=== PATIENT | male | born 1995 | race African-American/Black ===

== ENCOUNTER 2021-08-18 06:14 | Emergency (ER) | payer MEDICAID ==
[~2021-08-18] VITALS: Ht 185.4 cm; Wt 100.0 kg
[2021-08-18] MEDS ORDERED: LEVETIRACETAM 500MG PREMIX 100 ML IV ONE ×2 (06:30)
[2021-08-18 07:53] LABS: BASOPHILS % 0.4 % (0.0-2.0); EOSINOPHILS % 3.1 % (0.0-5.0); HEMATOCRIT. 42.4 % (42.0-52.0); HEMOGLOBIN. 14.2 g/dL (14.0-18.0); LYMPHOCYTES % 28.9 % (20.0-50.0); MEAN CORPUSCULAR HEMOGLOBIN 32.8 pg (28.0-32.0); MEAN CORPUSCULAR VOLUME 97.9 fL (80.0-94.0); MONOCYTES % 7.7 % (2.0-8.0); NEUTROPHILS % 59.9 % (40.0-76.0); PLATELET 182 x1000/uL (130-400); RED BLOOD CELL COUNT 4.33 mill/uL (4.7-6.1); RED CELL DISTRIBUTION WIDTH 13.6 % (11.6-14.6)
[2021-08-18 09:16] LABS: CHLORIDE 112 mEq/L (98-107)
[2021-08-18 09:22] LABS: ETHANOL BLOOD < 10 mg/dL
[2021-08-18 11:21] LABS: CLARITY URINE CLEAR (CLEAR); COLOR URINE YELLOW (YELLOW); KETONES URINE TRACE (NEGATIVE); LEUKOCYTE ESTERASE URINE NEGATIVE (NEGATIVE); NITRITE URINE NEGATIVE (NEGATIVE); OCCULT BLOOD URINE NEGATIVE (NEGATIVE); PH URINE 5.5 (4.5-8.0); PROTEIN URINE 1+ (NEGATIVE); SPECIFIC GRAVITY URINE 1.021 (1.005-1.030); UROBILINOGEN URINE 0.2 E.U./dL (0.2-1.0)
[2021-08-18] MEDS ORDERED: KETOROLAC 30MG/ML VIAL IV ONE (11:30)
[2021-08-18 11:41] LABS: *AMPHETAMINES SCREEN URINE NEGATIVE (NEGATIVE); *BARBITURATES SCREEN URINE NEGATIVE (NEGATIVE); *BENZODIAZEPINES SCREEN URINE PRESUMTIVE POSITIVE (NEGATIVE); *COCAINE SCREEN URINE NEGATIVE (NEGATIVE); METHADONE URINE SCREEN NEGATIVE (NEGATIVE)
[2021-08-18 11:42] LABS: CANNABINOID URINE SCREEN PRESUMTIVE POSITIVE (NEGATIVE); OPIATES URINE SCREEN NEGATIVE (NEGATIVE); PHENCYCLIDINE URINE SCREEN NEGATIVE (NEGATIVE)
[2021-08-18] MEDS ORDERED: LACO200T2 MT (12:01)
[2021-08-18 12:31] VITALS: BP 124/85
== END 2021-08-18 12:47 | disposition home or self-care (01) ==
LOC: ER 06:24
DX: R56.9 Unspecified convulsions (principal); I10 Essential (primary) hypertension
CPT/HCPCS: 36415; 80053; 80305; 80320; 81003; 85025; 93005; 96365; 96375; 99284; J1885; J1953; G0480

== ENCOUNTER 2021-11-25 11:36 | Emergency (ER) | payer MEDICAID, OTHER ==
[~2021-11-25] VITALS: Ht 185.4 cm; Wt 90.0 kg
[~2021-11-25 11:36] MED LIST: LACO200T2 MT
[2021-11-25 11:42] VITALS: BP 140/67
[2021-11-25] MEDS ORDERED: SODIUM CHLORIDE 0.9% 1,000 ML IV ONE (13:30)
== END 2021-11-25 16:41 | disposition left against medical advice (07) ==
LOC: ER 11:36
DX: G40.909 Epilepsy, unspecified, not intractable, without status epilepticus (principal); S00.512A Abrasion of oral cavity, initial encounter; R00.0 Tachycardia, unspecified; I10 Essential (primary) hypertension; X58.XXXA Exposure to other specified factors, initial encounter; Y93.89 Activity, other specified; Y92.89 Other specified places as the place of occurrence of the external cause
CPT/HCPCS: 82962; 99283; J7030

== ENCOUNTER 2021-12-11 08:11 | Inpatient (IN) | payer OTHER ==
[~2021-12-11] VITALS: Ht 182.9 cm; Wt 99.8 kg
[2021-12-11] MEDS ORDERED: DIVALPROEX SODIUM PO (08:19)
[2021-12-11] MEDS ORDERED: SODIUM CHLORIDE 0.9% 1,000 ML IV ONE (08:30)
[2021-12-11] MEDS ORDERED: LORAZEPAM 1MG TABLET PO ONE (08:45)
[2021-12-11 09:00] LABS: BASOPHILS % 0.9 % (0.0-2.0); EOSINOPHILS % 7.8 % (0.0-5.0); HEMATOCRIT. 41.9 % (42.0-52.0); HEMOGLOBIN. 14.2 g/dL (14.0-18.0); LYMPHOCYTES % 37.7 % (20.0-50.0); MEAN CORPUSCULAR HEMOGLOBIN 33.4 pg (28.0-32.0); MEAN CORPUSCULAR VOLUME 98.7 fL (80.0-94.0); MEAN PLATELET VOLUME 10.6 fl (7.4-10.4); MONOCYTES % 11.7 % (2.0-8.0); NEUTROPHILS % 41.9 % (40.0-76.0); PLATELET 135 x1000/uL (130-400); RED BLOOD CELL COUNT 4.24 mill/uL (4.7-6.1); RED CELL DISTRIBUTION WIDTH 13.9 % (11.6-14.6)
[2021-12-11 09:03] LABS: CLARITY URINE CLEAR (CLEAR); COLOR URINE YELLOW (YELLOW); KETONES URINE 1+ (NEGATIVE); LEUKOCYTE ESTERASE URINE NEGATIVE (NEGATIVE); NITRITE URINE NEGATIVE (NEGATIVE); OCCULT BLOOD URINE NEGATIVE (NEGATIVE); PROTEIN URINE 1+ (NEGATIVE); SPECIFIC GRAVITY URINE 1.026 (1.005-1.030)
[2021-12-11 09:08] LABS: CHLORIDE 110 mEq/L (98-107)
[2021-12-11 09:21] LABS: ETHANOL BLOOD < 10 mg/dL
[2021-12-11 09:22] LABS: *AMPHETAMINES SCREEN URINE NEGATIVE (NEGATIVE); *BARBITURATES SCREEN URINE NEGATIVE (NEGATIVE); *BENZODIAZEPINES SCREEN URINE NEGATIVE (NEGATIVE); *COCAINE SCREEN URINE NEGATIVE (NEGATIVE); CANNABINOID URINE SCREEN PRESUMTIVE POSITIVE (NEGATIVE); METHADONE URINE SCREEN NEGATIVE (NEGATIVE); OPIATES URINE SCREEN NEGATIVE (NEGATIVE); PHENCYCLIDINE URINE SCREEN NEGATIVE (NEGATIVE)
[2021-12-11 09:33] LABS: CARBAMAZEPINE < 0.5 ug/mL (4-12); PHENOBARBITAL < 2.1 ug/mL (15.0-40.0)
[2021-12-11] MEDS ORDERED: MIDAZOLAM HCL 2 MG/2 ML VIAL IM ONE ×2 (17:00→18:00)
[2021-12-11] MEDS ORDERED: LEVETIRACETAM 500MG PREMIX 100 ML IV NR (22:45)
[2021-12-12] MEDS: PANTOPRAZOLE SODIUM 40 MG/VIAL IV SCH (09:00)
[2021-12-12] MEDS: LEVETIRACETAM 500MG PREMIX 100 ML IV SCH ×2 (09:00→21:00)
[2021-12-12] MEDS ORDERED: ONDANSETRON HCL 4MG/2ML INJ IV PRN (12:30)
[2021-12-12] MEDS ORDERED: HYDROCODONE/ACETAMINOPHEN 5/325MG TABLET PO PRN (12:30)
[2021-12-12] MEDS ORDERED: ACETAMINOPHEN 325MG TABLET PO PRN (12:30)
[2021-12-12 13:43] VITALS: BP 123/74
[2021-12-12 13:47] VITALS: BP 123/74
[2021-12-12 17:49] VITALS: BP 141/75
[2021-12-12] MEDS ORDERED: NALOXONE HCL 0.4MG/ML VIAL IV PRN (18:45)
[2021-12-12] MEDS ORDERED: BRIV50TA PO (19:53)
[2021-12-12 20:00] VITALS: BP 144/86
[2021-12-12 22:00] VITALS: BP 128/71
[2021-12-12] MEDS ORDERED: DIPHENHYDRAMINE 50MG/ML VIAL IV PRN (22:30)
[2021-12-12] MEDS ORDERED: DIAZEPAM 5 MG/ML 2ML CPJ IV PRN (22:30)
[2021-12-12] MEDS: LAMOTRIGINE 25MG TABLET PO SCH (23:50)
[2021-12-13 07:09] LABS: BASOPHILS % 0.4 % (0.0-2.0); EOSINOPHILS % 2.8 % (0.0-5.0); HEMATOCRIT. 42.2 % (42.0-52.0); HEMOGLOBIN. 14.3 g/dL (14.0-18.0); LYMPHOCYTES % 37.3 % (20.0-50.0); MEAN CORPUSCULAR HEMOGLOBIN 33.2 pg (28.0-32.0); MEAN CORPUSCULAR VOLUME 98.2 fL (80.0-94.0); MEAN PLATELET VOLUME 10.8 fl (7.4-10.4); MONOCYTES % 13.8 % (2.0-8.0); NEUTROPHILS % 45.7 % (40.0-76.0); PLATELET 125 x1000/uL (130-400); RED CELL DISTRIBUTION WIDTH 13.6 % (11.6-14.6)
[2021-12-13 07:16] LABS: CHLORIDE 107 mEq/L (98-107)
[2021-12-13 07:32] LABS: HDL CHOLESTEROL 42 mg/dL (40-59); LDL CHOLESTEROL 119 mg/dL (5-100); T4 FREE 1.01 ng/dL (0.76-1.46)
[2021-12-13] MEDS: LEVETIRACETAM 500MG PREMIX 100 ML IV SCH (08:25)
[2021-12-13] MEDS: PANTOPRAZOLE SODIUM 40 MG/VIAL IV SCH (08:30)
[2021-12-13] MEDS: LAMOTRIGINE 25MG TABLET PO SCH ×2 (08:30→22:17)
[2021-12-13 10:00] VITALS: BP 149/94
[2021-12-13] MEDS: DIVALPROEX SODIUM 500MG DR TABLET PO SCH ×2 (10:41→22:16)
[2021-12-13] MEDS: LACOSAMIDE 100 MG TABLET PO SCH (12:42)
[2021-12-13 19:34] VITALS: BP 151/93
[2021-12-13 21:34] VITALS: BP 142/75
[2021-12-13] MEDS: FAMOTIDINE 20MG/2ML VIAL IV SCH (22:17)
[2021-12-13 23:34] VITALS: BP 136/87
[2021-12-14] VITALS (12 sets, daily range): BP systolic 130–174; BP diastolic 71–107
[2021-12-14] MEDS: DIVALPROEX SODIUM 500MG DR TABLET PO SCH (09:40)
[2021-12-14] MEDS: LACOSAMIDE 100 MG TABLET PO SCH ×2 (09:40→16:44)
[2021-12-14] MEDS: LAMOTRIGINE 25MG TABLET PO SCH ×2 (09:40→16:44)
[2021-12-14] MEDS: FAMOTIDINE 20MG/2ML VIAL IV SCH (09:40)
[2021-12-14] MEDS ORDERED: FAMOTIDINE 20MG TABLET PO SCH (21:00)
== END 2021-12-14 17:59 | disposition home or self-care (01) | DRG 53 ==
LOC: ER 08:11 → MICUSO 17:53 → 5EST 12-12 11:48
PROVIDERS: ADMIT Internal Medicine; ATTEND Internal Medicine
DX: G40.409 Other generalized epilepsy and epileptic syndromes, not intractable, without status epilepticus (principal); E44.1 Mild protein-calorie malnutrition; E87.5 Hyperkalemia; I10 Essential (primary) hypertension; Z20.822 Contact with and (suspected) exposure to COVID-19; T42.6X5A Adverse effect of other antiepileptic and sedative-hypnotic drugs, initial encounter; F12.90 Cannabis use, unspecified, uncomplicated; Z88.8 Allergy status to other drugs, medicaments and biological substances; Z79.899 Other long term (current) drug therapy; Y92.89 Other specified places as the place of occurrence of the external cause
CPT/HCPCS: 36415; 80053; 80061; 80156; 80165; 80184; 80185; 80305; 80320; 80339; 81003; 82962; 84439; 84443; 85025; 87426; 93005; 99285; C9113; C9803; J1953; J2250; J2405; J3490; J7030; G0480

== ENCOUNTER 2022-12-18 16:35 | Emergency (ER) | payer OTHER ==
[~2022-12-18] VITALS: Ht 182.9 cm; Wt 82.0 kg
[~2022-12-18 16:35] MED LIST changes: +BRIV50TA PO; +DIVALPROEX SODIUM PO
[2022-12-18 16:36] VITALS: O2SAT 99
[2022-12-18] MEDS ORDERED: ACETAMINOPHEN 325MG TABLET PO ONE (17:30)
[2022-12-18 17:41] LABS: BASOPHILS % 0.4 % (0.0-2.0); DIFFERENTIAL COMMENT 0; EOSINOPHILS % 0.2 % (0.0-5.0); HEMATOCRIT. 42.7 % (42.0-52.0); HEMOGLOBIN. 14.2 g/dL (14.0-18.0); LYMPHOCYTES % 7.9 % (20.0-50.0); MEAN CORPUSCULAR HEMOGLOBIN 33.5 pg (28.0-32.0); MEAN CORPUSCULAR HGB CONC 33.3 g/dL (31.0-37.0); MEAN CORPUSCULAR VOLUME 100.7 fL (80.0-94.0); MEAN PLATELET VOLUME 9.5 fl (7.4-10.4); MONOCYTES % 8.4 % (2.0-8.0); NEUTROPHILS % 83.1 % (40.0-76.0); PLATELET 148 x1000/uL (130-400); RED BLOOD CELL COUNT 4.23 mill/uL (4.7-6.1); RED CELL DISTRIBUTION WIDTH 12.9 % (11.6-14.6); WHITE BLOOD COUNT 9.8 x1000/uL (4.5-11.0)
[2022-12-18 17:53] LABS: CHLORIDE 108 mEq/L (98-107); INDEX HEMOLYSI 1 (1-3); INDEX ICTERIC 1 (1-4); INDEX LIPEMIC 1 (1-3); POTASSIUM 4.6 mEq/L (3.5-5.1); SODIUM 138 mEq/L (136-145)
[2022-12-18 18:00] LABS: ALANINE AMINOTRANSFERASE 36 IU/L (13-61); ALBUMIN 3.7 g/dL (3.4-5.0); ASPARTATE AMINOTRANSFERASE 16 IU/L (15-37); BILIRUBIN TOTAL 0.4 mg/dL (0.1-1.0); CALCIUM 8.3 mg/dL (8.5-10.1); CARBON DIOXIDE 24 mEq/L (21-32); ETHANOL BLOOD < 10 mg/dL (-10); GLUCOSE 111 mg/dL (70-105); PROTEIN TOTAL 6.7 g/dL (6.0-8.3); UREA NITROGEN BLOOD 14 mg/dL (7-21)
[2022-12-18] MEDS ORDERED: DIVALPROEX SODIUM 250MG ER TABLET PO ONE (19:15)
[2022-12-18] MEDS ORDERED: MORPHINE SULFATE 4 MG/ML CPJ (NOT FOR IM USE) IV ONE (19:15)
[2022-12-18] MEDS ORDERED: TOPUD MT (20:52)
[2022-12-18 21:00] VITALS: BP 120/80; PULSE 70; RESP 15; TEMP 98.1
[2022-12-19] MEDS ORDERED: DIVA-73 PO (16:40)
[2022-12-19] MEDS ORDERED: LACO200T4 PO (16:42)
[2022-12-19] MEDS ORDERED: BRIV100T PO (16:42)
[2022-12-19] MEDS ORDERED: FAMO40TA7 PO (16:42)
== END 2022-12-18 21:20 | disposition home or self-care (01) ==
LOC: ER 16:35
DX: G40.909 Epilepsy, unspecified, not intractable, without status epilepticus (principal); R51.9 Headache, unspecified; I10 Essential (primary) hypertension; F15.90 Other stimulant use, unspecified, uncomplicated; Z88.8 Allergy status to other drugs, medicaments and biological substances; Z79.899 Other long term (current) drug therapy
CPT/HCPCS: 80053; 80320; 80165; 85025; 36415; 70450; 96374; 99285; Z7610 ×3; J2270; G0480

== ENCOUNTER 2023-03-01 11:09 | Emergency (ER) | payer OTHER ==
[~2023-03-01] VITALS: Ht 177.8 cm; Wt 80.0 kg
[~2023-03-01 11:09] MED LIST changes: +BRIV100T PO; -BRIV50TA PO; +DIVA-73 PO; -DIVALPROEX SODIUM PO; +FAMO40TA7 PO; -LACO200T2 MT; +LACO200T4 PO
[2023-03-01 11:12] VITALS: O2SAT 98
[2023-03-01] MEDS ORDERED: VALPROATE SODIUM 500 MG in SODIUM CHLORIDE 0.9% 100 ML IV STA (11:20)
[2023-03-01 12:24] LABS: BASOPHILS % 0.5 % (0.0-2.0); EOSINOPHILS % 3.8 % (0.0-5.0); HEMOGLOBIN. 13.3 g/dL (14.0-18.0); LYMPHOCYTES % 37.5 % (20.0-50.0); MEAN CORPUSCULAR HEMOGLOBIN 32.4 pg (28.0-32.0); MEAN CORPUSCULAR HGB CONC 33.2 g/dL (31.0-37.0); MEAN CORPUSCULAR VOLUME 97.8 fL (80.0-94.0); MEAN PLATELET VOLUME 9.6 fl (7.4-10.4); MONOCYTES % 13.2 % (2.0-8.0); PLATELET 142 x1000/uL (130-400); RED BLOOD CELL COUNT 4.09 mill/uL (4.7-6.1); RED CELL DISTRIBUTION WIDTH 13.6 % (11.6-14.6); WHITE BLOOD COUNT 2.8 x1000/uL (4.5-11.0)
[2023-03-01 12:32] LABS: CHLORIDE 110 mEq/L (98-107); INDEX HEMOLYSI 1 (1-3); INDEX ICTERIC 1 (1-4); INDEX LIPEMIC 1 (1-3); POTASSIUM 4.1 mEq/L (3.5-5.1); SODIUM 140 mEq/L (136-145)
[2023-03-01 12:42] LABS: ALANINE AMINOTRANSFERASE 18 IU/L (13-61); ALBUMIN 3.3 g/dL (3.4-5.0); ASPARTATE AMINOTRANSFERASE 13 IU/L (15-37); BILIRUBIN TOTAL 0.4 mg/dL (0.1-1.0); CALCIUM 8.3 mg/dL (8.5-10.1); CARBON DIOXIDE 24 mEq/L (21-32); ETHANOL BLOOD < 10 mg/dL (<10); GLUCOSE 82 mg/dL (70-105); UREA NITROGEN BLOOD 12 mg/dL (7-21)
[2023-03-01] MEDS ORDERED: ACETAMINOPHEN 325MG TABLET PO ONE (13:00)
[2023-03-01] MEDS ORDERED: ONDANSETRON HCL 4MG/2ML INJ IV ONE (13:30)
[2023-03-01 14:32] LABS: CLARITY URINE CLEAR (CLEAR); COLOR URINE YELLOW (YELLOW); GLUCOSE URINE NEGATIVE (NEGATIVE); KETONES URINE 1+ (NEGATIVE); LEUKOCYTE ESTERASE URINE NEGATIVE (NEGATIVE); NITRITE URINE NEGATIVE (NEGATIVE); OCCULT BLOOD URINE NEGATIVE (NEGATIVE); PROTEIN URINE TRACE (NEGATIVE); SPECIFIC GRAVITY URINE 1.021 (1.005-1.030)
[2023-03-01 14:35] LABS: BACTERIA URINE NONE SEEN; RBC URINE NONE SEEN /hpf (0-2); SQUAMOUS EPITHELIAL CELL URINE NONE SEEN /lpf (RARE/1+); WBC URINE NONE SEEN /hpf (0-2); YEAST URINE NONE SEEN
[2023-03-01 14:55] LABS: *AMPHETAMINES SCREEN URINE NEGATIVE (NEGATIVE); *BARBITURATES SCREEN URINE NEGATIVE (NEGATIVE); *BENZODIAZEPINES SCREEN URINE PRESUMTIVE POSITIVE (NEGATIVE); *COCAINE SCREEN URINE NEGATIVE (NEGATIVE); CANNABINOID URINE SCREEN PRESUMTIVE POSITIVE (NEGATIVE); ECSTASY MDMA SCREEN URINE NEGATIVE (NEGATIVE); OPIATES URINE SCREEN NEGATIVE (NEGATIVE); PHENCYCLIDINE URINE SCREEN NEGATIVE (NEGATIVE)
[2023-03-01 14:57] LABS: FINE GRANULAR CASTS URINE 0-5 /lpf; HYALINE CASTS URINE 0-5 /lpf; MUCUS URINE 1+ /lpf (NONE/TRACE)
[2023-03-01 15:27] VITALS: BP 153/91; PULSE 54; RESP 16; TEMP 98
== END 2023-03-01 15:33 | disposition home or self-care (01) ==
LOC: ER 11:09
DX: R56.9 Unspecified convulsions (principal); I10 Essential (primary) hypertension; F19.90 Other psychoactive substance use, unspecified, uncomplicated; F12.90 Cannabis use, unspecified, uncomplicated; Z86.73 Personal history of transient ischemic attack (TIA), and cerebral infarction without residual deficits; Z88.8 Allergy status to other drugs, medicaments and biological substances
CPT/HCPCS: 80053; 80305; 81003; 80320; 80165; 85025; 36415; 96365; 96375; 99284; J2405; J3490; J7050; G0480

== ENCOUNTER 2024-01-11 07:30 | Emergency (ER) | payer MEDICAID ==
[~2024-01-11] VITALS: Ht 185.4 cm; Wt 87.0 kg
[~2024-01-11 07:30] MED LIST changes: +DIVA-75 MT; +LISI20TA31 MT
[2024-01-11 07:36] VITALS: O2SAT 96
[2024-01-11] MEDS ORDERED: LORAZEPAM 2MG/ML INJ ONE (07:59)
[2024-01-11] MEDS: LORAZEPAM 2MG/ML INJ IV ONE (08:18)
[2024-01-11] MEDS ORDERED: ONDANSETRON HCL 4MG/2ML INJ IV ONE (09:30)
[2024-01-11 10:53] LABS: BASOPHILS % 0.6 % (0.0-2.0); DIFFERENTIAL COMMENT 0; EOSINOPHILS % 0.1 % (0.0-5.0); HEMATOCRIT. 46.5 % (42.0-52.0); HEMOGLOBIN. 15.5 g/dL (14.0-18.0); MEAN CORPUSCULAR HEMOGLOBIN 33.8 pg (28.0-32.0); MEAN CORPUSCULAR HGB CONC 33.4 g/dL (31.0-37.0); MEAN CORPUSCULAR VOLUME 101.1 fL (80.0-94.0); MONOCYTES % 10.5 % (2.0-8.0); NEUTROPHILS % 75.8 % (40.0-76.0); PLATELET 152 x1000/uL (130-400); RED BLOOD CELL COUNT 4.59 mill/uL (4.7-6.1); RED CELL DISTRIBUTION WIDTH 14.3 % (11.6-14.6)
[2024-01-11 11:10] LABS: CHLORIDE 110 mEq/L (98-107); POTASSIUM 4.5 mEq/L (3.5-5.1); SODIUM 138 mEq/L (136-145)
[2024-01-11 11:11] LABS: CALCIUM 9.8 mg/dL (8.7-10.4); CARBON DIOXIDE 20 mEq/L (21-32)
[2024-01-11 11:16] LABS: CREATININE 1.2 mg/dL (0.6-1.3); GLUCOSE 70 mg/dL (70-105); UREA NITROGEN BLOOD 11 mg/dL (9-23)
[2024-01-11 11:18] LABS: ALANINE AMINOTRANSFERASE 16 IU/L (10-49); ALBUMIN 4.8 g/dL (3.2-4.8); ASPARTATE AMINOTRANSFERASE 21 IU/L (<34); BILIRUBIN TOTAL 0.4 mg/dL (0.1-1.0); PROTEIN TOTAL 7.2 g/dL (6.0-8.3)
[2024-01-11 11:30] LABS: ETHANOL BLOOD < 10 mg/dL (<10)
[2024-01-11] MEDS: ONDANSETRON HCL 4MG/2ML INJ IV NR (12:01)
[2024-01-11 16:14] VITALS: BP 128/70; PULSE 79; RESP 23; TEMP 37.00296; O2SAT 95
[2024-01-11] MEDS ORDERED: ONDANSETRON HCL 4MG/2ML INJ IV PRN (16:45)
[2024-01-11] MEDS ORDERED: NALOXONE HCL 0.4MG/ML VIAL IV PRN (16:45)
[2024-01-11] MEDS ORDERED: ACETAMINOPHEN 325MG TABLET PO PRN (16:45)
[2024-01-11] MEDS ORDERED: FAMOTIDINE 20MG TABLET PO SCH (16:45)
[2024-01-11] MEDS ORDERED: LORAZEPAM 2MG/ML INJ IV PRN (16:45)
[2024-01-11] MEDS ORDERED: DIVALPROEX SODIUM 250MG DR TABLET PO SCH (16:45)
[2024-01-11] MEDS ORDERED: IPRATROPIUM/ALBUTEROL 0.5-3(2.5)MG/3ML NEB HHN PRN (16:45)
[2024-01-11] MEDS ORDERED: HYDROCODONE/ACETAMINOPHEN 5/325MG TABLET PO PRN (16:45)
[2024-01-12] MEDS ORDERED: ENOXAPARIN 40MG/0.4ML SYR SUBCUT SCH (09:00)
== END 2024-01-11 15:20 | disposition short-term general hospital (02) ==
LOC: ER 07:37 → EDBEDREQ 09:23 → ER 15:20 → CANBEDREQ 16:49
DX: G40.802 Other epilepsy, not intractable, without status epilepticus (principal); I10 Essential (primary) hypertension; E03.9 Hypothyroidism, unspecified; F12.90 Cannabis use, unspecified, uncomplicated; Z88.8 Allergy status to other drugs, medicaments and biological substances
CPT/HCPCS: 36415; 71045; 80053; 80165; 80320; 85025; 87426; 96374; 96375; 99284; J2060; J2405; G0480

== ENCOUNTER 2024-03-27 04:57 | Emergency (ER) | payer MEDICAID ==
[~2024-03-27] VITALS: Ht 182.9 cm; Wt 100.0 kg
[2024-03-27 05:04] VITALS: O2SAT 100
[2024-03-27 05:57] LABS: HEMATOCRIT. 39.9 % (42.0-52.0); HEMOGLOBIN. 13.6 g/dL (14.0-18.0); MEAN CORPUSCULAR HEMOGLOBIN 34.3 pg (28.0-32.0); MEAN CORPUSCULAR HGB CONC 34.1 g/dL (31.0-37.0); MEAN CORPUSCULAR VOLUME 100.6 fL (80.0-94.0); MEAN PLATELET VOLUME 9.3 fl (7.4-10.4); PLATELET 155 x1000/uL (130-400); RED BLOOD CELL COUNT 3.97 mill/uL (4.7-6.1); RED CELL DISTRIBUTION WIDTH 13.9 % (11.6-14.6); WHITE BLOOD COUNT 3.1 x1000/uL (4.5-11.0)
[2024-03-27 05:58] LABS: CHLORIDE 109 mEq/L (98-107); POTASSIUM 4.5 mEq/L (3.5-5.1); SODIUM 141 mEq/L (136-145)
[2024-03-27 05:59] LABS: CARBON DIOXIDE 24 mEq/L (21-32)
[2024-03-27 06:00] LABS: CALCIUM 9.2 mg/dL (8.7-10.4)
[2024-03-27 06:01] LABS: DIFFERENTIAL COMMENT 1
[2024-03-27 06:04] LABS: CREATININE 1.1 mg/dL (0.6-1.3)
[2024-03-27 06:05] LABS: GLUCOSE 91 mg/dL (70-105); TROPONIN I HIGH SENSITIVITY 16 ng/L (3.0-53); UREA NITROGEN BLOOD 13 mg/dL (9-23)
[2024-03-27 06:08] LABS: ETHANOL BLOOD < 10 mg/dL (<10)
[2024-03-27 08:19] LABS: PLATELET ESTIMATE NORMAL
[2024-03-27] MEDS: METOCLOPRAMIDE HCL 10MG/2ML VIAL IV ONE (08:45)
[2024-03-27] MEDS: KETOROLAC 30MG/ML VIAL IV ONE (08:45)
[2024-03-27] MEDS ORDERED: NAPR-681 MT (08:56)
[2024-03-27 09:00] VITALS: BP 132/74; PULSE 56; RESP 16; TEMP 36.50292; O2SAT 100
== END 2024-03-27 09:20 | disposition home or self-care (01) ==
LOC: ER 04:57
DX: R56.9 Unspecified convulsions (principal); Z79.899 Other long term (current) drug therapy
CPT/HCPCS: 36415; 71045; 80048; 80320; 84484; 85025; 93005; 96374; 96375; 99285; J1885; J2765; G0480

== ENCOUNTER 2024-04-27 07:01 | Emergency (ER) | payer MEDICAID ==
[~2024-04-27] VITALS: Ht 185.4 cm; Wt 82.0 kg
[~2024-04-27 07:01] MED LIST changes: +NAPR-681 MT
[2024-04-27 07:02] VITALS: O2SAT 96
[2024-04-27 08:12] LABS: CHLORIDE 110 mEq/L (98-107); POTASSIUM 4.8 mEq/L (3.5-5.1); SODIUM 140 mEq/L (136-145)
[2024-04-27 08:13] LABS: BASOPHILS % 0.4 % (0.0-2.0); CALCIUM 9.1 mg/dL (8.7-10.4); CARBON DIOXIDE 25 mEq/L (21-32); DIFFERENTIAL COMMENT 0; EOSINOPHILS % 7.2 % (0.0-5.0); HEMATOCRIT. 41.1 % (42.0-52.0); HEMOGLOBIN. 13.9 g/dL (14.0-18.0); LYMPHOCYTES % 45.8 % (20.0-50.0); MEAN CORPUSCULAR HEMOGLOBIN 34.4 pg (28.0-32.0); MEAN CORPUSCULAR HGB CONC 33.7 g/dL (31.0-37.0); MEAN CORPUSCULAR VOLUME 102.1 fL (80.0-94.0); MEAN PLATELET VOLUME 9.6 fl (7.4-10.4); MONOCYTES % 12.8 % (2.0-8.0); NEUTROPHILS % 33.8 % (40.0-76.0); PLATELET 123 x1000/uL (130-400); RED BLOOD CELL COUNT 4.03 mill/uL (4.7-6.1); RED CELL DISTRIBUTION WIDTH 13.7 % (11.6-14.6); WHITE BLOOD COUNT 3.2 x1000/uL (4.5-11.0)
[2024-04-27 08:18] LABS: GLUCOSE 89 mg/dL (70-105); UREA NITROGEN BLOOD 17 mg/dL (9-23)
[2024-04-27 08:19] LABS: VALPROIC ACID 86.5 ug/mL (50-100)
[2024-04-27 08:20] LABS: CARBAMAZEPINE < 0.4 ug/mL (4-12); ETHANOL BLOOD < 10 mg/dL (<10); PHENOBARBITAL < 3.0 ug/mL (15.0-40.0); PHENYTOIN < 2.0 ug/mL (10-20)
[2024-04-27] MEDS: ACETAMINOPHEN 325MG TABLET PO ONE (08:30)
[2024-04-27 13:00] VITALS: BP 120/81; PULSE 66; RESP 17; TEMP 36.50292; O2SAT 97
[2024-04-27] MEDS ORDERED: ACETAMINOPHEN 325MG TABLET PO PRN (13:30)
[2024-04-27] MEDS ORDERED: SODIUM CHLORIDE 0.45% 1,000 ML IV SCH (13:30)
[2024-04-27] MEDS ORDERED: IPRATROPIUM/ALBUTEROL 0.5-3(2.5)MG/3ML NEB HHN PRN (13:30)
[2024-04-27] MEDS ORDERED: ONDANSETRON HCL 4MG/2ML INJ IV PRN (13:30)
[2024-04-27] MEDS ORDERED: HYDROCODONE/ACETAMINOPHEN 5/325MG TABLET PO PRN (13:30)
[2024-04-27] MEDS ORDERED: NALOXONE HCL 0.4MG/ML VIAL IV PRN (13:45)
[2024-04-27] MEDS ORDERED: ENOXAPARIN 40MG/0.4ML SYR SUBCUT SCH (16:00)
== END 2024-04-27 16:24 | disposition left against medical advice (07) ==
LOC: ER 07:01 → EDBEDREQ 11:58 → ER 16:24
DX: R56.9 Unspecified convulsions (principal); I10 Essential (primary) hypertension; Z91.09 Other allergy status, other than to drugs and biological substances; Z88.8 Allergy status to other drugs, medicaments and biological substances; Z88.4 Allergy status to anesthetic agent; Z79.899 Other long term (current) drug therapy; Z86.73 Personal history of transient ischemic attack (TIA), and cerebral infarction without residual deficits
CPT/HCPCS: 36415; 71045; 80048; 80156; 80165; 80184; 80185; 80320; 85025; 99285; G0480

== ENCOUNTER 2024-05-22 23:14 | Emergency (ER) | payer MEDICAID ==
[~2024-05-22] VITALS: Ht 182.9 cm; Wt 82.0 kg
[2024-05-22 23:23] VITALS: O2SAT 99
[2024-05-23 00:14] LABS: BASOPHILS % 0.5 % (0.0-2.0); DIFFERENTIAL COMMENT 0; EOSINOPHILS % 4.2 % (0.0-5.0); HEMATOCRIT. 42.3 % (42.0-52.0); HEMOGLOBIN. 14.2 g/dL (14.0-18.0); LYMPHOCYTES % 51.8 % (20.0-50.0); MEAN CORPUSCULAR HGB CONC 33.6 g/dL (31.0-37.0); MEAN CORPUSCULAR VOLUME 101.3 fL (80.0-94.0); MEAN PLATELET VOLUME 9.3 fl (7.4-10.4); MONOCYTES % 9.2 % (2.0-8.0); NEUTROPHILS % 34.3 % (40.0-76.0); PLATELET 138 x1000/uL (130-400); RED BLOOD CELL COUNT 4.18 mill/uL (4.7-6.1); WHITE BLOOD COUNT 4.8 x1000/uL (4.5-11.0)
[2024-05-23 00:26] LABS: CHLORIDE 108 mEq/L (98-107); POTASSIUM 4.4 mEq/L (3.5-5.1); SODIUM 140 mEq/L (136-145)
[2024-05-23 00:27] LABS: CARBON DIOXIDE 26 mEq/L (21-32)
[2024-05-23 00:28] LABS: CALCIUM 8.9 mg/dL (8.7-10.4)
[2024-05-23 00:32] LABS: CREATININE 1.2 mg/dL (0.6-1.3)
[2024-05-23 00:33] LABS: ETHANOL BLOOD < 10 mg/dL (<10); GLUCOSE 89 mg/dL (70-105); UREA NITROGEN BLOOD 18 mg/dL (9-23)
[2024-05-23 02:16] VITALS: BP 110/69; PULSE 74; RESP 15; TEMP 36.78072; O2SAT 100
== END 2024-05-23 02:11 | disposition home or self-care (01) ==
LOC: ER 23:31
DX: G40.909 Epilepsy, unspecified, not intractable, without status epilepticus (principal); I10 Essential (primary) hypertension; Z86.73 Personal history of transient ischemic attack (TIA), and cerebral infarction without residual deficits; Z79.899 Other long term (current) drug therapy; Z79.1 Long term (current) use of non-steroidal anti-inflammatories (NSAID)
CPT/HCPCS: 36415; 71045; 80048; 80320; 85025; 99284; G0480

== ENCOUNTER 2024-07-23 10:29 | Emergency (ER) | payer MEDICAID ==
[~2024-07-23] VITALS: Ht 172.7 cm; Wt 68.0 kg
[2024-07-23 10:30] VITALS: TEMP 36.9; O2SAT 98
[2024-07-23] MEDS ORDERED: DIVALPROEX SODIUM 250MG ER TABLET PO ONE (10:45)
[2024-07-23 11:07] LABS: BASOPHILS % 0.6 % (0.0-2.0); DIFFERENTIAL COMMENT 0; EOSINOPHILS % 2.7 % (0.0-5.0); HEMATOCRIT. 43.4 % (42.0-52.0); HEMOGLOBIN. 14.2 g/dL (14.0-18.0); MEAN CORPUSCULAR HEMOGLOBIN 33.2 pg (28.0-32.0); MEAN CORPUSCULAR HGB CONC 32.7 g/dL (31.0-37.0); MEAN CORPUSCULAR VOLUME 101.7 fL (80.0-94.0); MEAN PLATELET VOLUME 8.4 fl (7.4-10.4); MONOCYTES % 11.1 % (2.0-8.0); NEUTROPHILS % 47.6 % (40.0-76.0); PLATELET 173 x1000/uL (130-400); RED BLOOD CELL COUNT 4.26 mill/uL (4.7-6.1); RED CELL DISTRIBUTION WIDTH 13.5 % (11.6-14.6); WHITE BLOOD COUNT 3.8 x1000/uL (4.5-11.0)
[2024-07-23 11:09] LABS: CHLORIDE 108 mEq/L (98-107); POTASSIUM 4.2 mEq/L (3.5-5.1); SODIUM 140 mEq/L (136-145)
[2024-07-23 11:10] LABS: CARBON DIOXIDE 24 mEq/L (21-32)
[2024-07-23 11:11] LABS: CALCIUM 9.3 mg/dL (8.7-10.4)
[2024-07-23 11:15] LABS: GLUCOSE 102 mg/dL (70-105); UREA NITROGEN BLOOD 9 mg/dL (9-23)
[2024-07-23 11:17] LABS: ALANINE AMINOTRANSFERASE < 7 IU/L (10-49); ASPARTATE AMINOTRANSFERASE 12 IU/L (<34)
[2024-07-23 11:18] LABS: BILIRUBIN TOTAL 0.6 mg/dL (0.1-1.0); PROTEIN TOTAL 6.3 g/dL (6.0-8.3)
[2024-07-23] MEDS: DIVALPROEX SODIUM 250MG ER TABLET PO NR (11:37)
[2024-07-23 12:26] VITALS: BP 134/77; PULSE 50; RESP 12; O2SAT 100
[2024-07-23] MEDS ORDERED: ACET-2708 MT (12:41)
[2024-07-23] MEDS ORDERED: FAMO-135 MT (12:41)
[2024-07-23] MEDS: ACETAMINOPHEN 325MG TABLET PO ONE (12:55)
[2024-07-23] MEDS: FAMOTIDINE 20MG/2ML VIAL IV ONE (12:55)
[2024-07-23] MEDS: METOCLOPRAMIDE HCL 10MG/2ML VIAL IV ONE (12:55)
== END 2024-07-23 13:05 | disposition home or self-care (01) ==
LOC: ER 10:34
DX: R56.9 Unspecified convulsions (principal); Z79.899 Other long term (current) drug therapy; Z86.73 Personal history of transient ischemic attack (TIA), and cerebral infarction without residual deficits; Z79.1 Long term (current) use of non-steroidal anti-inflammatories (NSAID); I10 Essential (primary) hypertension
CPT/HCPCS: 80053; 83690; 85025; 36415; 96374; 96375; 99284; Z7610; J3490; J2765